=== PATIENT | male | born 1960 | race Caucasian/White ===

== ENCOUNTER → 2019-06-23 18:00 | Outpatient (BNVA) | payer MEDICAID, SELFPAY | PROVIDERS: Family Provider Family Medicine; PCP Family Medicine; Visit Provider Nurse Practitioner Family | DX: R50.9 Fever, unspecified (principal); R06.2 Wheezing; J44.1 Chronic obstructive pulmonary disease with (acute) exacerbation | CPT/HCPCS: 71046; 87804 ==

== ENCOUNTER → 2019-06-26 13:22 | Outpatient (BNVA) | payer MEDICAID, SELFPAY | PROVIDERS: Family Provider Family Medicine; PCP Family Medicine; Visit Provider Emergency Medicine | DX: J98.8 Other specified respiratory disorders (principal); R73.03 Prediabetes | CPT/HCPCS: 71046 ==

== ENCOUNTER 2019-12-27 12:36 | Outpatient (CLI) | payer MEDICAID, SELFPAY ==
--- NOTE | 2019-12-27 12:43 | XR_ITS ---
WS: [id number] PROCEDURE: XR chest 2V* [id number] CLINICAL INFORMATION: copd exacerbatiom COMPARISON: June 26, 2019 FINDINGS: Heart: Normal cardiac silhouette. Lungs: Moderate chronic emphysematous changes. Interstitial thickening in the perihilar regions has i mproved since June 26, 2019. No new pulmonary infiltrates. Hyperinflation. Flattening of the hemid iaphragms. Bones: Normal visualized bony structures. XR/XR chest 2V* [id number] IMPRESSION: 1. Persistent but improved perihilar interstitial infiltrates. Mild residual p erihilar interstitial thickening. 2. Advanced chronic emphysematous changes with hyperinflation. 3. No focal pneumonia.
--- NOTE | 2019-12-27 13:00 | XR_ITS ---
WS: [id number] LUMBAR SPINE TECHNIQUE: 3 views of the lumbar spine CLINICAL INFORMATION: Lower back pain, left leg pain COMPARISON: None. FINDINGS: Five dto-tri-wvnpykr lumbar vertebral bodies. Disc space heights are well preserved. No compression f ractures. Slight retrolisthesis L5 on S1. Aortic calcification. Mild facet arthropathy L5-S1. XR/XR lumbar spine 2-3V* [id number] IMPRESSION: Slight retrolisthesis L5 on S1 with mild disc space narrowing. Lumbar spine is unremarkable.
--- NOTE | 2019-12-27 13:30 | XR_ITS ---
WS: [id number] HIP WITH PELVIS LEFT TECHNIQUE: 3 views of the left hip with pelvis CLINICAL INFORMATION: Lower back pain, left leg pain COMPARISON: None. FINDINGS: Left hip and proximal femur appear normal. Visualized pubic rami appear normal. XR/XR hip LT 2-3V wo/w pel* [id number] IMPRESSION: Normal left hip and proximal femur
== END 2019-12-27 12:37 | disposition home or self-care (01) ==
PROVIDERS: Family Provider Family Medicine; PCP Family Medicine; Visit Provider Family Medicine
DX: J44.1 Chronic obstructive pulmonary disease with (acute) exacerbation (principal); M54.5 Low back pain; M79.605 Pain in left leg
CPT/HCPCS: 71046; 72100; 73502

== ENCOUNTER 2020-01-05 06:00 | Outpatient (RCR) | payer MEDICAID, SELFPAY | END 2020-01-20 23:59 | disposition home or self-care (01) | LOC: MPT 06:00 | PROVIDERS: PCP Family Medicine; Referring Provider Family Medicine; Visit Provider Family Medicine | DX: G89.29 Other chronic pain (principal); M54.16 Radiculopathy, lumbar region | CPT/HCPCS: 97110; 97161; 97530 ==

== ENCOUNTER 2020-01-21 06:00 | Outpatient (RCR) | payer MEDICAID, SELFPAY | END 2020-02-20 23:59 | disposition home or self-care (01) | LOC: MPT 06:00 | PROVIDERS: PCP Family Medicine; Referring Provider Family Medicine; Visit Provider Family Medicine | DX: G89.29 Other chronic pain (principal); M54.16 Radiculopathy, lumbar region | CPT/HCPCS: 97110; 97530 ==

== ENCOUNTER → 2020-03-27 10:01 | Outpatient (BNVA) | payer MEDICAID, SELFPAY | PROVIDERS: PCP Family Medicine; Visit Provider Family Medicine | DX: Z11.59 Encounter for screening for other viral diseases (principal) | CPT/HCPCS: 87635 ==

== ENCOUNTER → 2020-04-17 11:49 | Outpatient (BNVA) | payer MEDICAID, SELFPAY | PROVIDERS: PCP Family Medicine; Visit Provider Family Medicine | DX: R35.0 Frequency of micturition (principal); Z12.5 Encounter for screening for malignant neoplasm of prostate | CPT/HCPCS: 80053; 81003; 84153 ==

== ENCOUNTER → 2020-05-29 09:59 | Outpatient (BNVA) | payer MEDICAID, SELFPAY | PROVIDERS: PCP Family Medicine; Visit Provider Family Medicine | DX: J44.1 Chronic obstructive pulmonary disease with (acute) exacerbation (principal); Z13.1 Encounter for screening for diabetes mellitus; Z13.220 Encounter for screening for lipoid disorders; Z13.6 Encounter for screening for cardiovascular disorders; F41.1 Generalized anxiety disorder; M54.16 Radiculopathy, lumbar region; M54.32 Sciatica, left side | CPT/HCPCS: 80053; 80061; 85025 ==

== ENCOUNTER → 2020-06-04 14:39 | Outpatient (BNVA) | payer MEDICAID, SELFPAY | PROVIDERS: PCP Family Medicine; Referring Provider Family Medicine; Visit Provider Nurse Practitioner Family | DX: R35.0 Frequency of micturition (principal); N40.1 Benign prostatic hyperplasia with lower urinary tract symptoms | CPT/HCPCS: 81003 ==

== ENCOUNTER → 2020-07-30 10:19 | Outpatient (BNVA) | payer MEDICAID, SELFPAY | PROVIDERS: PCP Family Medicine; Visit Provider Urology | DX: N40.1 Benign prostatic hyperplasia with lower urinary tract symptoms (principal) | CPT/HCPCS: 81003 ==

== ENCOUNTER → 2021-01-28 10:05 | Outpatient (BNVA) | payer MEDICAID, SELFPAY | PROVIDERS: PCP Family Medicine; Visit Provider Urology | DX: N40.1 Benign prostatic hyperplasia with lower urinary tract symptoms (principal) | CPT/HCPCS: 81003 ==

== ENCOUNTER → 2021-05-08 14:20 | Outpatient (BNVA) | payer MEDICAID, SELFPAY | PROVIDERS: PCP Family Medicine; Visit Provider Family Medicine | DX: Z13.220 Encounter for screening for lipoid disorders (principal); Z13.6 Encounter for screening for cardiovascular disorders; J44.9 Chronic obstructive pulmonary disease, unspecified; J44.1 Chronic obstructive pulmonary disease with (acute) exacerbation; Z13.1 Encounter for screening for diabetes mellitus | CPT/HCPCS: 80053; 80061; 85025 ==

== ENCOUNTER → 2021-11-06 10:05 | Outpatient (BNVA) | payer MEDICAID, SELFPAY | PROVIDERS: PCP Family Medicine; Visit Provider Family Medicine | DX: J44.1 Chronic obstructive pulmonary disease with (acute) exacerbation (principal); F41.1 Generalized anxiety disorder; M54.32 Sciatica, left side; M54.16 Radiculopathy, lumbar region; K21.9 Gastro-esophageal reflux disease without esophagitis; Z12.5 Encounter for screening for malignant neoplasm of prostate | CPT/HCPCS: 80048; 84153; 85025 ==

== ENCOUNTER 2022-01-30 08:02 | Outpatient (CLI) | payer MEDICARE, MEDICAID, SELFPAY ==
[2022-01-30 09:18] LABS: PSA Screen - Urology 1.36 ng/mL (0-4)
== END 2022-01-30 08:03 | disposition home or self-care (01) ==
LOC: LAB 08:02
PROVIDERS: PCP Family Medicine; Visit Provider Urology
DX: Z12.5 Encounter for screening for malignant neoplasm of prostate (principal); N40.1 Benign prostatic hyperplasia with lower urinary tract symptoms
CPT/HCPCS: 51741; 51798; 81003; 99213; G0103

== ENCOUNTER → 2022-04-07 11:37 | Outpatient (BNVA) | payer MEDICARE, MEDICAID, SELFPAY | PROVIDERS: PCP Family Medicine; Visit Provider Family Medicine | DX: J44.1 Chronic obstructive pulmonary disease with (acute) exacerbation (principal); M54.32 Sciatica, left side; M54.16 Radiculopathy, lumbar region; K21.9 Gastro-esophageal reflux disease without esophagitis; F41.1 Generalized anxiety disorder; S99.922A Unspecified injury of left foot, initial encounter | CPT/HCPCS: 73630 ==

== ENCOUNTER → 2022-10-06 09:33 | Outpatient (BNVA) | payer MEDICARE, MEDICAID, SELFPAY | PROVIDERS: PCP Family Medicine; Visit Provider Family Medicine | DX: J44.1 Chronic obstructive pulmonary disease with (acute) exacerbation (principal); F41.1 Generalized anxiety disorder; M54.32 Sciatica, left side; K21.9 Gastro-esophageal reflux disease without esophagitis; N40.1 Benign prostatic hyperplasia with lower urinary tract symptoms; M54.16 Radiculopathy, lumbar region; Z13.1 Encounter for screening for diabetes mellitus; Z13.6 Encounter for screening for cardiovascular disorders | CPT/HCPCS: 80053; 80061; 85025 ==

== ENCOUNTER → 2023-02-24 17:47 | Outpatient (BNVA) | payer MEDICARE, MEDICAID, SELFPAY | PROVIDERS: PCP Family Medicine; Visit Provider Nurse Practitioner Family | DX: R06.02 Shortness of breath (principal); J44.1 Chronic obstructive pulmonary disease with (acute) exacerbation | CPT/HCPCS: 71046 ==

== ENCOUNTER → 2023-04-07 08:49 | Outpatient (BNVA) | payer MEDICARE, SELFPAY | PROVIDERS: PCP Family Medicine; Visit Provider Family Medicine | DX: Z23 Encounter for immunization (principal); J44.1 Chronic obstructive pulmonary disease with (acute) exacerbation; Z72.0 Tobacco use; K21.9 Gastro-esophageal reflux disease without esophagitis; M54.32 Sciatica, left side; J30.2 Other seasonal allergic rhinitis; F41.1 Generalized anxiety disorder; Z13.1 Encounter for screening for diabetes mellitus; Z51.81 Encounter for therapeutic drug level monitoring; Z12.5 Encounter for screening for malignant neoplasm of prostate; Z29.11 Encounter for prophylactic immunotherapy for respiratory syncytial virus (RSV); N40.1 Benign prostatic hyperplasia with lower urinary tract symptoms; Z63.6 Dependent relative needing care at home; Z71.85 Encounter for immunization safety counseling | CPT/HCPCS: 80048; G0103 ==

== ENCOUNTER 2023-06-19 09:27 | Outpatient (CLI) | payer MEDICARE, SELFPAY ==
--- NOTE | 2023-06-19 10:00 | CT_ITS ---
WS: [id number] LDCT LUNG CANCER SCREENING TECHNIQUE: Noncontrast CT of the chest with coronal and sagittal reformatted images. CLINICAL INFORMATION: Z87.891 - Personal history of nicotine dependence COMPARISON: None. DLP: 56.49 mGy.cm DIvol: Mean CTDIvol: 0.90 (mGy) All CT scans at [facility] use at least one of these dose optimization techniques: automat ed exposure control; mA and/or kV adjustment per patient size (includes targeted exams where dose is matched to clinical indication); or iterative reconstruction. FINDINGS: Advanced chronic emphysematous changes. No suspicious pulmonary parenchymal abnormalities. Bulla form ation in the upper lobes. Aortic calcification. Normal caliber thoracic aorta. Coronary calcification . No mediastinal or hilar lymphadenopathy. Normal LEFT adrenal gland. RIGHT adrenal lesion measuring 2.1 cm likely adenoma. Mild chronic anterio r wedging at T7. Partially visualized large low-attenuation lesion in the RIGHT hepatic lobe with a central scar measu ring 12.7 x 7.9 cm. Additional areas of heterogeneity throughout the liver. Recommend further evaluat ion with contrast-enhanced CT abdomen pelvis. IMPRESSION: RECOMMEND CONTRAST-ENHANCED CT ABDOMEN PELVIS to assess the above-described liver lesions . Malignancy is not excluded. No prior comparisons. CT/CT lung screening [id number] LUNG-RADS: 1S-Negative with Significant Findings FOLLOW UP: 12 Month: Continue annual screening with LDCT Recommend contrast-enhanced CT abdomen pelvis to assess the above-described l iver lesions
== END 2023-06-19 09:28 | disposition home or self-care (01) ==
LOC: RAD 09:27
PROVIDERS: PCP Family Medicine; Visit Provider Family Medicine
DX: Z12.2 Encounter for screening for malignant neoplasm of respiratory organs (principal); Z87.891 Personal history of nicotine dependence; B34.9 Viral infection, unspecified
CPT/HCPCS: 71271; 87400; 87426

== ENCOUNTER 2023-07-20 15:27 | Outpatient (CLI) | payer MEDICARE, SELFPAY ==
--- NOTE | 2023-07-20 16:00 | CT_ITS ---
WS: [id number] CT ABDOMEN AND PELVIS WITH CONTRAST HISTORY: R93.2 - Abnormal findings on diagnostic imaging of liver ... TECHNIQUE: Imaging performed of the abdomen and pelvis with IV contrast. Multi phase imaging of the rajni garcia. Coronal and sagittal reformats are submitted. All CT scans at [facility] use at least one of these dose optimization techniques: automated exposure control; mA and/or kV adjustment per p atient size (includes targeted exams where dose is matched to clinical indication); or iterative elvia nstruction. IV CONTRAST: Omnipaque 350; 100 mL IV. Oral contrast: No DLP: 690.53 mGy.cm COMPARISON: None available. Lower thorax: Severe hyperexpansion and bullous emphysema at the lung bases. Heart is normal size. No hiatal hernia. Liver/biliary system: Abnormal liver. There are multiple masses throughout the RIGHT and LEFT lobes o f the liver corresponding to the findings described on the lung screening CT. All of these masses con tain early arterial peripheral nodular globular enhancement which fill-in over time. The largest mass in the superior RIGHT lobe of the liver measures 11.6 x 8.5 cm and extends over a length of 7.5 cm. This is consistent with a large cavernous hemangioma. There are multiple additional scattered similar masses which are smaller in size. No bile duct dilatation. Gallbladder: Normal. No gallstones or wall thickening. No pericholecystic fluid. Pancreas: Normal size pancreas and pancreatic duct. No adjacent inflammation. Spleen: Normal size spleen. No mass or infarct. Adrenal glands: Low-attenuation mass closely associated with the liver and the RIGHT adrenal gland. T his may be a small adenoma. Right kidney: Normal size kidney. Too small to characterize hypodensity in the mid kidney. Left kidney: Normal. Aorta: Mild atherosclerosis with no aneurysm. Lymphadenopathy: None. Free fluid: None. GI tract: Normal small bowel. No small bowel obstruction. Prior appendectomy. Numerous diverticula in creasing in number throughout the colon. No evidence for acute diverticulitis. There is a loop of sma ll bowel closely associated with the orifice of the RIGHT inguinal hernia but there is no incarcerati on at this time. Abdominal wall: Unremarkable abdominal wall. No hernia. Pelvis: Mild bladder wall thickening. Prostate gland is enlarged encroaching into the bladder with ce ntral calcification. Bones: Unremarkable. IMPRESSION: 1. There are multiple masses throughout the liver consistent with cavernous hemangiomas. Giant heman gioma in the RIGHT lobe of the liver measures 11.6 x 8.5 x 7.5 cm. 2. Severe bullous emphysema at the lung bases. 3. No renal obstruction. 4. Prior appendectomy. 5. Moderate colonic diverticular burden. No acute diverticulitis. 6. Enlarged prostate.
[2023-07-20 16:24] LABS: Blood Urea Nitrogen 11 mg/dL (8-23)
[2023-07-20] MEDS: iohexol 350 mg/mL 500 mL Btl (per mL) IV (16:26)
== END 2023-07-20 15:28 | disposition home or self-care (01) ==
LOC: RAD 15:27
PROVIDERS: Radiology Neuroradiology; PCP Family Medicine; Visit Provider Family Medicine
DX: R93.2 Abnormal findings on diagnostic imaging of liver and biliary tract (principal); D18.03 Hemangioma of intra-abdominal structures; R16.0 Hepatomegaly, not elsewhere classified; J43.9 Emphysema, unspecified; Z90.89 Acquired absence of other organs; K57.90 Diverticulosis of intestine, part unspecified, without perforation or abscess without bleeding
CPT/HCPCS: 74177; 82565; 84520; Q9967

== ENCOUNTER 2023-08-20 06:28 | Outpatient (CLI) | payer MEDICARE, SELFPAY ==
--- NOTE | 2023-08-20 07:00 | US_ITS ---
WS: [id number] RIGHT UPPER QUADRANT ULTRASOUND HISTORY: D18.03 - Hemangioma of intra-abdominal structures COMPARISON: CT abdomen 07/20/2023 Liver: 17.0 cm in length. Liver is normal size. As previously identified on the prior CT of 07/20/2023 there are multiple masses which are heterogeneous in the liver. These masses were better visualized on CT. The largest mass in the RIGHT lobe of the liver is predominately of increased echogenicity deonte suring 10.8 x 7.9 cm. There are additional smaller masses scattered throughout the liver as seen on t he prior CT. Masses are in the LEFT and RIGHT hepatic lobes. No evidence for acute hemorrhage. Portal Vein: Normal hepatopetal flow with monophasic waveform. Gallbladder: Normally distended. Small nonshadowing foci within the gallbladder. There is several gal lbladder polyps attached to the wall. CBD: 0.4 cm Pancreas: Not visualized. Right kidney: 9.9 cm in length. Normal size and echogenicity. No hydronephrosis or mass. Aorta and IVC: Unremarkable abdominal aorta and IVC. No ascites. IMPRESSION: 1. Numerous heterogeneous masses scattered throughout the liver. These are most consistent with sathish ngiomas. The largest mass measures 10.8 x 7.9 cm. Better described and visualized on the CT of 024. Refer to the CT report for additional information from 07/20/2023. 2. No cholelithiasis. 3. Numerous small gallbladder polyps.
== END 2023-08-20 06:29 | disposition home or self-care (01) ==
LOC: RAD 06:29
PROVIDERS: PCP Family Medicine; Visit Provider Emergency Medicine
DX: D18.03 Hemangioma of intra-abdominal structures (principal); R10.9 Unspecified abdominal pain; K82.4 Cholesterolosis of gallbladder
CPT/HCPCS: 76705

== ENCOUNTER → 2023-10-07 08:54 | Outpatient (BNVA) | payer SELFPAY | PROVIDERS: PCP Family Medicine; Visit Provider Family Medicine | DX: Z72.0 Tobacco use (principal); J44.1 Chronic obstructive pulmonary disease with (acute) exacerbation; M54.32 Sciatica, left side; J30.2 Other seasonal allergic rhinitis; F41.1 Generalized anxiety disorder; M54.16 Radiculopathy, lumbar region; D18.03 Hemangioma of intra-abdominal structures; Z13.1 Encounter for screening for diabetes mellitus; Z51.81 Encounter for therapeutic drug level monitoring; N40.1 Benign prostatic hyperplasia with lower urinary tract symptoms; Z13.220 Encounter for screening for lipoid disorders; Z13.6 Encounter for screening for cardiovascular disorders | CPT/HCPCS: 85025 ==

== ENCOUNTER → 2023-10-12 10:35 | Outpatient (BNVA) | payer SELFPAY | PROVIDERS: PCP Family Medicine; Referring Provider Family Medicine; Visit Provider Family Medicine | DX: D18.03 Hemangioma of intra-abdominal structures (principal); J44.1 Chronic obstructive pulmonary disease with (acute) exacerbation; J44.9 Chronic obstructive pulmonary disease, unspecified | CPT/HCPCS: 80053; 80061; 85025 ==

== ENCOUNTER → 2024-04-15 10:30 | Outpatient (BNVA) | payer MEDICARE, SELFPAY | PROVIDERS: PCP Family Medicine; Referring Provider Family Medicine; Visit Provider Student in an Organized Health Care Education/Training Program | DX: Z12.11 Encounter for screening for malignant neoplasm of colon (principal) | CPT/HCPCS: 99024; 99204 ==

== ENCOUNTER 2024-05-16 11:28 | Day surgery (SDC) | payer MEDICARE, SELFPAY ==
[2024-05-16 11:45] VITALS: BP 120/84; PULSE 88; RESP 24; TEMP 36.7; O2SAT 98
--- NOTE | 2024-05-16 11:52 | ANES.PREANE2 ---
Pre-Anesthetic Assessment Height/Weight: Height 1.68 m Preop Diagnosis: screening Operation Date: 05/16/24 13:00 Proposed Procedures p Colonoscopy- 52234, Z12.11 , G0121(Not Applicable) - Candelario Ramos MD Familial anesthetic complications: none Was Beta Mega taken within 24 hours: N/A Was Clonidine taken within 24 hours: N/A Social Tobacco and No alcohol 1 pack(s) per day Exam alert, oriented x 3 and clear to auscultation bilaterally Airway Mallampati: Class II History/ROS No significant history except as noted Pulmonary Chronic Obstructive Pulmonary Disease and Exertional Dyspnea CV/HEM None reported None reported Hepatic None reported GI None reported Metabolic None reported Musc/skel None reported Neuropsych None reported Anesthetic Plan ASA status: 3 Anesthesia: Anesthesia Evaluation and MAC Risk of > 500 ml blood loss (7ml/kg in children): No Medications/Allergies Home Medications Medication Instructions Recorded Confirmed Last Taken Type cranberry extract 200 mg capsule 200 mg PO DAILY 01/28/21 05/11/24 05/11/24 History loratadine 10 mg tablet (Claritin) 10 mg PO DAILY 01/28/21 05/11/24 05/11/24 History miscellaneous medical supply See Rx Instructions miscellaneous 06/01/23 05/11/24 05/11/24 Rx .COMPLEX #1 ea tramadol 50 mg tablet 50 mg PO Q12H PRN pain 7 days #14 10/07/23 05/11/24 Unknown Rx tabs albuterol sulfate 0.63 mg/3 mL 0.63 mg (3 mL) inhalation QID PRN 04/06/24 05/11/24 Unknown Rx solution for nebulization shortness of breath or wheezing 30 days #120 vials fluoxetine 20 mg capsule 20 mg PO DAILY 90 days #90 caps 04/06/24 05/11/24 05/11/24 Rx fluticasone fur. 200 mcg-umeclid 1 inh inhalation DAILY #60 ea 04/06/24 05/11/24 05/11/24 Rx 62.5 mcg-vilant 25 mcg inhalat.powder (Trelegy Ellipta) gabapentin 300 mg capsule 300 mg PO BID 90 days #180 caps 04/06/24 05/11/24 05/11/24 Rx ipratropium bromide 17 2 puff inhalation QID #12.9 grams 04/06/24 05/11/24 05/11/24 Rx mcg/actuation HFA aerosol inhaler (Atrovent HFA) guaifenesin 600 mg tablet, 600 mg PO DAILY 05/06/24 05/11/24 05/11/24 History extended release 12 hr (Mucinex) multivitamin 1 tab PO DAILY 05/06/24 05/11/24 05/11/24 History omega 6-izi-pia-fish oil 60 mg-90 2 cap PO DAILY 05/06/24 05/11/24 05/11/24 History mg-500 mg capsule (Fish Oil) albuterol sulfate 90 mcg/actuation 2 puff inhalation Q6H PRN 05/11/24 05/11/24 05/11/24 History aerosol inhaler Shortness Of Breath finasteride 5 mg tablet 5 mg PO DAILY 05/11/24 05/11/24 05/11/24 History fluticasone propionate 50 1 spray intranasal Q12H PRN 05/11/24 05/11/24 Unknown History mcg/actuation nasal Allergy Symptoms spray,suspension mupirocin 2 % topical ointment 1 applic topical TID PRN Outbreak 05/11/24 05/11/24 Unknown History omeprazole 40 mg capsule,delayed 40 mg PO BID 05/11/24 05/11/24 05/11/24 History release tamsulosin 0.4 mg capsule 0.4 mg PO BID 05/11/24 05/11/24 05/11/24 History Allergies Allergy/AdvReac Type Severity Reaction Status Date / Time No Known Allergies Allergy Verified 05/06/24 10:26 [facility] Anesthesia Medical History BPH loc w urin obs/LUTS Sciatica of left side COPD (chronic obstructive pulmonary disease) TINA (generalized anxiety disorder) Major depressive disorder Diverticulitis History of colon polyps Unilateral recurrent inguinal hernia without obstruction or gangrene Surgical History H/O hernia repair S/P appendectomy History of thoracotomy H/O excision of ganglion cyst Family History Mother , at age 58 Congestive heart failure (CHF) Father , at age 76 Cancer brain Social History Smoking and tobacco/nicotine status: current every day tobacco/nicotine user cigarettes Packs smoked per day: 0.5 Years cigarettes smoked: 45 Quit status (tobacco/nicotine): considering quitting Second hand smoke exposure: Yes Alcohol intake: never Substance/Drug Use: never Lives independently: No Household members: other Details: friend Marital status: / Number of children: 0 Current occupational status: disabled Pets and animals: Yes (2) Pets & animals: cat(s) Data Anesthesia Cardiac Studies: No Data to Display
[2024-05-16] MEDS: sodium chloride 0.9% 1,000 ML 30 ML IV (11:57)
--- NOTE | 2024-05-16 12:15 | W.PM.OPSUD ---
Surgery/Procedure H&P Update DATE OF PROCEDURE: May 16, 2024 DATE H&P PERFORMED: 04/15/24 H&P UPDATE INFORMATION: I have reviewed H&P completed within last 30 days, I have examined patient prior to procedure and No changes to prior documentation PREOP DIAGNOSIS: screening PLANNED PROCEDURE: Operation Date: 05/16/24 13:00 Proposed Procedures p Colonoscopy- 62768, Z12.11 , G0121(Not Applicable) - Candelario Ramos MD
[2024-05-16 12:47] VITALS: BP 117/70; PULSE 69; RESP 18; TEMP 36.4; O2SAT 98
[2024-05-16 13:01] VITALS: BP 117/78; PULSE 71; RESP 18; O2SAT 94
[2024-05-16] MEDS: ondansetron 2 mg/ML SDV 2 mL 4 MG IVP (13:04)
[2024-05-16 13:20] VITALS: BP 120/72; PULSE 75; RESP 20; O2SAT 95
--- NOTE | 2024-05-16 13:55 | ANE.PACU2 ---
Inpatient post-anesthesia follow up: Airway intact: Yes Vital signs: Temperature 97.5 F Pulse Rate 75 Respiratory Rate 20 Blood Pressure 120/72 Pulse Oximetry 95 Oxygen Delivery Me thod Nasal Cannula Oxygen Flow Rate 2 Fraction of Inspir ed Oxygen Hydration adequate: Yes Nausea and vomiting: No Pain level: 1 Mental status: Baseline
== END 2024-05-16 13:55 | disposition home or self-care (01) ==
PROVIDERS: PCP Family Medicine; Visit Provider Student in an Organized Health Care Education/Training Program
PROC: 0DJD8ZZ Inspection of Lower Intestinal Tract, Via Natural or Artificial Opening Endoscopic (ICD-10-PCS; CPT 45378; principal; 2024-05-16 13:00)
DX: Z12.11 Encounter for screening for malignant neoplasm of colon (principal); D12.7 Benign neoplasm of rectosigmoid junction; D12.2 Benign neoplasm of ascending colon; D12.5 Benign neoplasm of sigmoid colon; J44.9 Chronic obstructive pulmonary disease, unspecified; N40.1 Benign prostatic hyperplasia with lower urinary tract symptoms; N13.8 Other obstructive and reflux uropathy; F17.210 Nicotine dependence, cigarettes, uncomplicated
CPT/HCPCS: 45385; 88305; J2405; J2704; J7030

== ENCOUNTER → 2024-06-17 09:22 | Outpatient (BNVA) | payer MEDICARE, SELFPAY | PROVIDERS: PCP Family Medicine; Visit Provider Student in an Organized Health Care Education/Training Program | DX: Z09 Encounter for follow-up examination after completed treatment for conditions other than malignant neoplasm (principal) | CPT/HCPCS: 99213 ==